=== PATIENT | female | born 1995 | race Caucasian/White ===

== ENCOUNTER 2017-10-24 04:29 | Emergency (ER) | payer OTHER ==
--- NOTE | 2017-10-24 04:56 | ERNOTE ---
Abdominal HPI - Narrative Date of Service: 10/24/17 - General Chief Complaint: Abdominal Pain Time Seen by Provider: 10/24/17 04:47 Source: patient Exam Limitations: no limitations - Immun/Allergies/Home Medications Immunizatons: IMMUNIZATION HX Immunizations Up to Date Yes History of Influenza Vaccine Yes Hx Pneumococcal Vaccination No Allergies/Adverse Reactions: Allergies topiramate [From Topamax] Allergy (Verified 10/24/17 04:36) Home Medications: HOME MEDICATIONS NK [No Home Medication] 10/24/17 [Last Taken Unknown] - History of Present Illness Narrative: 21 year old that had a sudden onset of severe pain at the RLQ yesterday at about 1800 hours, and did not radiate. The pain was different from ovarian cysts that she has had in the past. No complaints of fevers, chills, vaginal discharge or dysuria. Seen at [facility] prior to being seen in this ED and referred to this ED due to their CT not being functional. Chemistries,cbc, UA done at [facility] were unremarkable. test was negative. Plain film of the abdomen showed a moderate stool burden. Date (Duration): 10/24/17 Time (Timing): 04:53 Timing: constant Quality: moderate Activities at Onset: none Modifying Factors - (Improves): Present: other - morphine sulphate Modifying Factors - (Worsens): Present: movement Associated Symptoms: Present: denies symptoms Review of Systems - Review of Systems Constitutional: Present: no symptoms reported EYE: Present: no symptoms reported ENT: Present: no symptoms reported Respiratory: Present: no symptoms reported Cardiology: Present: no symptoms reported Gastrointestinal/Abdominal: Present: See HPI Genitourinary: Present: no symptoms reported Musculoskeletal: Present: no symptoms reported Skin: Present: no symptoms reported Neurological: Present: no symptoms reported Endocrine: Present: no symptoms reported Hematologic/Lymphatic: Present: no symptoms reported - Patient's Past Medical History Patient History - Medical: GERD, Migraines, Other Patient History - Cardiac/Respiratory: Other Patient History - Cancer: No Hx of Cancer Patient History - Surgical Procedures: No surgical history Patient History - Other: None LMP (Calendar): 10/10/17 - Social History Living Situations: home Abuse History: No History of abuse Psych History: No pertinent hx Smoking Status: Current every day smoker Alcohol Use: occasionally Drug Use: none - Immunizations Immunizations Up to Date: Yes Hx Pneumococcal Vaccination: No History of Influenza Vaccine: Yes Physical Exam - Physical Exam Narrative: obese General Appearance: Present: no apparent distress Head Exam: Present: normal inspection Eye Exam: Normal inspection: bilateral Ears, Nose, Throat: Present: normal ENT inspection Neck: Present: normal inspection Respiratory: Present: no respiratory distress Cardiovascular/Chest: Present: regular rate, rhythm Gastrointestinal/Abdominal: Present: other - tenderness at the RLQ on palpation.. Absent: guarding, rebound Back Exam: Present: normal inspection Extremity Exam: Present: normal inspection Neurological Exam: Present: alert, oriented Skin Exam: Present: normal color ED Progress - Results and Orders Patient's Lab Results:: I have reviewed the patient's lab results. - Vital Signs Patient's Vital Signs:: I have reviewed the patient's vital signs. Vital Signs: Vital Signs 10/24/17 10/24/17 04:30 04:35 Temperature 37.2 C 37.2 C Pulse Rate 78 78 Respiratory 18 18 Rate Blood Pressure 136/89 136/89 O2 Sat by Pulse 98 98 Oximetry - CT/Ultrasound CT/Ultrasound Narrative: Mild fecal retention. Normal appendix. - Progress/Reassessment Chief Complaint: Abdominal Pain Progress:: Unchanged Progress Note-Subjective: 10/24/17 05:43 Hemodynamically stable. 10/24/17 05:47 Given Milk of Magnesia 30 cc po and a bottle of Magnesium Citrate to go home with. Departure Clinical Impression: Abdominal pain - Departure Disposition: Home self-care Condition: Good Instructions: Abdominal Pain, Adult, [id number] Print Language: Armenian Additional Instructions: Follow up with your primary care physician next week.
[2017-10-24] MEDS ORDERED: MAGNESIUM CITRATE 300 ML BTL PO ONE (05:41)
[2017-10-24] MEDS ORDERED: MAGNESIUM HYDROXIDE 30 ML UDC PO ONE (05:41)
[2017-10-24] MEDS ORDERED: MAGNESIUM HYDROXIDE 30 ML UDC ONE (05:44)
[2017-10-24] MEDS ORDERED: MAGNESIUM CITRATE 300 ML BTL ONE (05:44)
[2017-10-24 06:01] VITALS: BP 100/41
== END 2017-10-24 05:59 | disposition home or self-care (01) ==
LOC: ER 04:29
DX: R10.31 Right lower quadrant pain (principal); F17.200 Nicotine dependence, unspecified, uncomplicated